=== PATIENT | female | born 1965 | race Caucasian/White ===

== ENCOUNTER 2024-04-05 10:24 | Emergency (ER) | payer BC ==
[~2024-04-05] VITALS: Ht 177.8 cm; Wt 127.0 kg
[2024-04-05 10:46] VITALS: BP 124/85; PULSE 68; RESP 18; TEMP 98.1; O2SAT 99
[2024-04-05 11:34] LABS: BASOPHILS % 0.8 % (0.0-2.0); EOSINOPHILS % 9.3 % (0.0-5.0); HEMATOCRIT. 42.5 % (36.0-48.0); HEMOGLOBIN. 14.3 g/dL (12.0-16.0); MEAN CORPUSCULAR HEMOGLOBIN 29.3 pg (28.0-32.0); MEAN CORPUSCULAR HGB CONC 33.6 g/dL (31.0-37.0); MEAN CORPUSCULAR VOLUME 87.2 fL (81.0-99.0); MEAN PLATELET VOLUME 8.1 fl (7.4-10.4); MONOCYTES % 7.7 % (2.0-8.0); NEUTROPHILS % 67.2 % (40.0-76.0); PLATELET 218 x1000/uL (130-400); RED BLOOD CELL COUNT 4.88 mill/uL (4.2-5.4); RED CELL DISTRIBUTION WIDTH 13.2 % (11.6-14.6); WHITE BLOOD COUNT 5.9 x1000/uL (4.5-11.0)
[2024-04-05 11:45] LABS: POTASSIUM 4.5 mEq/L (3.5-5.1)
[2024-04-05 11:46] LABS: CALCIUM 9.3 mg/dL (8.7-10.4)
[2024-04-05] MEDS ORDERED: TUSSL PO (13:13)
[2024-04-05] MEDS ORDERED: AZIT250T12 MT (13:13)
[2024-04-05] MEDS ORDERED: ALBU18HF2 IH (13:13)
== END 2024-04-05 13:42 | disposition home or self-care (01) ==
LOC: ER 10:24
DX: J20.9 Acute bronchitis, unspecified (principal); Z90.49 Acquired absence of other specified parts of digestive tract; Z90.710 Acquired absence of both cervix and uterus
CPT/HCPCS: 36415; 71045; 80048; 85025; 99284